=== PATIENT | female | born 1945 | race Caucasian/White ===

== ENCOUNTER 2018-08-10 17:55 | Emergency (ER) | payer OTHER, BC ==
[2018-08-10 18:11] VITALS: TEMP 97.8; BMI 24.0
--- NOTE | 2018-08-10 18:39 | PDOC ---
Documentation entered by Rivas Luna SCRIBE, acting as scribe for Lisseth Danielson MD. Lisseth Danielson MD: This documentation has been prepared by the Jeremy howe Daniel, SCRIBE, under my direction and personally reviewed by me in its entirety. I confirm that the documentation accurately reflects all work, treatment, procedures, and medical decision making performed by me. History of Present Illness - General Chief Complaint: Respiratory Stated Complaint: COUGH, SOB History Source: Patient Exam Limitations: No Limitations - History of Present Illness Initial Comments: 08/10/18 18:43 The patient is a 72 year old female with a past medical history of COPD here today for evaluation of productive cough and shortness of breath x 1 week. The patient reports that she has been having difficulty breathing with a cough productive of yellowish white sputum since friday (08/04/18). She also notes intermittent wheezing and a tickle in her throat. Patient reports using her albuterol treatment with no relief. She reports that she started taking prednisone and levaquin x 3 days, rx'd by PMD last Friday. no URI sx. +possible trigger of weather changes and allergy season no longer smoking, quit 1 year ago. Patient denies headache, lightheadedness. Denies fever, chills. Denies chest pain. Denies nausea, vomiting, diarrhea, abdominal pain. Allergies: ciprofloxacin, penicillins, succinylcholine PCP: Pedro Pablo España 08/10/18 19:07 08/10/18 19:08 Past History - Past Medical History Allergies/Adverse Reactions: Allergies Allergy/AdvReac Type Severity Reaction Status Date / Time ciprofloxacin [From Cipro] Allergy Verified 08/10/18 17:56 Penicillins Allergy Verified 08/10/18 17:56 succinylcholine Allergy Verified 08/10/18 17:56 Home Medications: Ambulatory Orders Albuterol Sulfate Inhaler - [Ventolin Hfa Inhaler -] 2 inh PO Q6H PRN 08/10/18 Prednisone 5 mg PO ASDIR 08/10/18 Umeclidinium Brm/Vilanterol Tr [Anoro Ellipta 62.5-25 Mcg INH] 1 each IH DAILY 08/10/18 - Suicide/Smoking/Psychosocial Hx Smoking History: Current every day smoker Number of Cigarettes Smoked Daily: 20 'Breaking Loose' booklet given: 04/11/14 Hx Alcohol Use: No Substance Use Type: None Review of Systems - Review of Systems Able to Perform ROS?: Yes Comments:: 08/10/18 18:44 GENERAL/CONSTITUTIONAL: No fever or chills. No weakness. no sweats. HEAD, EYES, EARS, NOSE AND THROAT: +tickle in throat. No change in vision or hearing. No ear pain or discharge. No sore throat or mouth pain. No difficulty swallowing. No congestion. CARDIOVASCULAR: No chest pain or palpitations, syncope or edema. RESPIRATORY: +cough. +SOB. +wheezing. No hemoptysis. GASTROINTESTINAL No nausea/vomiting. No diarrhea or constipation. No bloody stools. GENITOURINARY: No hematuria, dysuria, frequency, urgency or other changes. MUSCULOSKELETAL: No joint or muscle swelling or pain. No decreased range of motion. No neck or back pain. SKIN: No rash or changes in skin color or lesions. No wounds. NEUROLOGIC: alert and oriented appropriately No headache, dizziness, loss of consciousness, or change in strength/sensation. No gait instability. HEMATOLOGIC/LYMPHATIC: No anemia, easy bruising/bleeding, or history of blood clots. No swollen lymph nodes ALLERGIC/IMMUNOLOGIC: No allergies PSYCH: no anxiety/depression All other systems reviewed and negative, or as documented in HPI. *Physical Exam - Physical Exam Comments: 08/10/18 18:49 General: Well appearing, awake and alert, NAD. HEENT: NCAT, PERRL, EOMI, clear conjunctiva, anicteric, moist mucus membranes, clear oropharynx, no oral lesions.. Neck: neck supple, FROM Resp: CTAB, normal and even respirations, no respiratory distress CVS: RRR, no murmurs, 2+ peripheral pulses throughout, no peripheral edema Abdomen: soft, NTND, no rebound or guarding. No CVAT. Back: nontender, normal inspection and ROM MSK: no edema, FAJARDO x4, ROM intact. No clubbing or cyanosis. normal bulk and tone. Extremities: no calf tenderness Neuro: alert, oriented appropriately; no focal neurologic deficits Skin: warm and well perfused, cap refill <2 sec, normal color Medical Decision Making - Medical Decision Making 08/10/18 19:05 hpi as documented VS with no fever, no hypoxia. mild tachycardia, but also very anxious and admits to it. nontoxic appearing, well, no systemic s/s to suggest severe infection or pathology Interpreted by ED Physician: CXR (2 view): no acute abnormality: no infiltrates , bones appear intact and structures normal alignment, cardiac silhouette within normal limits. no free air under diaphragm, no pneumothorax. ?left lower lobe opacity, changed from prior. already on levaquin, complete and continue already on prednisone, continue minimize triggers, antihistamines such as zyrtec as needed for allergies possible precipitant hydration, supportive care, albuterol inh use instructed repeat VS normalized, no longer tachy, doubt PE or cardiac etiology, no cp or sob. pt informed of impression and plan, discharge in stable condition, return precautions and expectant management. pt and family verbalized understanding. 08/10/18 19:06 08/10/18 19:48 08/10/18 19:51 *DC/Admit/Observation/Transfer Diagnosis at time of Disposition: COPD (chronic obstructive pulmonary disease), Bronchitis - Discharge Dispostion Disposition: HOME Condition at time of disposition: Stable Decision to Admit order: No - Referrals Referrals: Pedro Pablo España MD [Primary Care Provider] - - Patient Instructions Printed Discharge Instructions: DI for Chronic Obstructive Pulmonary Disease, DI for Acute Bronchitis Additional Instructions: salt water gargles and warm lemon tea is appropriate as well for soothing qualities for sore throat/cough. minimize spread of infection given contagious nature, and cover your mouth and wash your hands adequately with soap and water. Stay well hydrated and rest. Cool air - walk around outdoors in the evening. May also try hot shower steam. This can alleviate the congestion and cough. May use the albuterol inhaler every 4-6 hours as needed for cough and breathing to clear up your airways. Return precautions include respiratory distress, difficulty breathing, cyanosis , chest pain, lethargy, confusion, dehydration, high fevers or pain. continue taking your steroids as instructed as well as the antibiotics called levaquin to cover for infection/bacteria/pneumonia - Post Discharge Activity
[2018-08-10] MEDS ORDERED: ALBUTEROL SO4 2.5/IPRATROPIUM 0.5 INH SOL 3 ML VIAL.NEB. NEB ONE (18:49)
[2018-08-10] MEDS: ALBUTEROL SO4 2.5/IPRATROPIUM 0.5 INH SOL 3 ML VIAL.NEB. NEB SCH ×3 (18:50→19:20)
[2018-08-10 19:35] VITALS: BP 139/81; PULSE 97
== END 2018-08-10 19:54 | disposition home or self-care (01) ==
LOC: FER 17:55
PROC: 3E0F7GC Introduction of Other Therapeutic Substance into Respiratory Tract, Via Natural or Artificial Opening (ICD-10-PCS; principal; 2018-08-10)
DX: J44.9 Chronic obstructive pulmonary disease, unspecified (principal)
CPT/HCPCS: 71045-TC-FY; 94640; 99282-25

== ENCOUNTER 2020-02-07 11:35 | Inpatient (IN) | payer OTHER, BC ==
[2020-02-07] MEDS ORDERED: ALBUTEROL SO4 2.5/IPRATROPIUM 0.5 INH SOL 3 ML VIAL.NEB. NEB ONE ×2 (11:46→12:02)
[2020-02-07 12:36] LABS: INR 1.03 (0.82-1.09); PROTHROMBIN TIME (PATIENT) 11.5 SEC (10.2-13.0)
[2020-02-07 12:38] LABS: BASO % 0.8 % (0-2.0); EOS % 2.2 % (0-4.5); HEMATOCRIT 48.8 % (32.4-45.2); LYMPH % 24.7 % (8-40); MCH 29.6 pg (25.7-33.7); MCHC 32.7 g/dl (32.0-36.0); MEAN CELL VOLUME 90.6 fl (80-96); MEAN PLT VOLUME 8.4 fl (7.5-11.1); MONO % 8.8 % (3.8-10.2); NEUT % 63.5 % (42.8-82.8); PLATELET COUNT 339 K/MM3 (134-434); RBC 5.39 M/mm3 (3.60-5.2); RDW 14.3 % (11.6-15.6); WHITE BLOOD COUNT 7.7 K/mm3 (4.0-10.8)
[2020-02-07 12:41] LABS: ALBUMIN 4.6 g/dl (3.4-5.0); ALK PHOS 75 U/L (45-117); ANION GAP 13 MMOL/L (8-16); BILIRUBIN,TOTAL 0.8 mg/dl (0.2-1); CALCIUM 9.4 mg/dl (8.5-10); CHLORIDE 100 mmol/L (98-107); CO2 24 mmol/L (21-32); CREATININE 0.8 mg/dl (0.55-1.3); GLUCOSE,RANDOM 109 mg/dl (74-106); POTASSIUM 4.5 mmol/L (3.5-5.1); SGOT/AST 26 U/L (15-37); SGPT/ALT 21 U/L (13-61); SODIUM 137 mmol/L (136-145); TOT PROT 8.1 g/dl (6.4-8.2)
[2020-02-07] MEDS ORDERED: predniSONE 20 MG TABLET (UD) PO ONE (13:22)
[2020-02-07 13:30] LABS: VENOUS BASE EXCESS -0.4 mmol/L (-2-2); VENOUS O2 SATURATION 94.7 % (70-80); VENOUS PCO2 49.7 mmHg (38-52); VENOUS PH 7.339 (7.310-7.410)
[2020-02-07] MEDS ORDERED: predniSONE 20 MG TABLET (UD) ONE (13:49)
[2020-02-07] MEDS ORDERED: SODIUM CHLORIDE 500 ML IV STA (14:07)
[2020-02-07] MEDS ORDERED: SODIUM CHLORIDE FOR INHALATION 3 ML VIAL.NEB IH ONE (16:26)
[2020-02-07] MEDS ORDERED: DOXYCYCLINE HYCLATE 100 MG CAPSULE PO ONE ×2 (17:34→17:35)
[2020-02-07 18:56] VITALS: BMI 25.4
[2020-02-07] MEDS ORDERED: ALBUTEROL SO4 HFA INHALER IH PRN (20:36)
[2020-02-07] MEDS: ALPRAZolam 0.25 MG TABLET PO PRN (23:50)
[2020-02-07] MEDS: guaiFENesin 200 MG/10 ML 10 ML UNIT-DOSE CUPS PO PRN (23:50)
[2020-02-08] MEDS: methylPREDNISolone NA SUCC 40 MG/1 ML VIAL IVPUSH SCH ×2 (03:10→09:35)
[2020-02-08 07:40] LABS: BASO % 0.8 % (0-2.0); HEMATOCRIT 44.2 % (32.4-45.2); HEMOGLOBIN 14.9 GM/dl (10.7-15.3); LYMPH % 13.9 % (8-40); MCHC 33.8 g/dl (32.0-36.0); MEAN CELL VOLUME 88.6 fl (80-96); MEAN PLT VOLUME 8.5 fl (7.5-11.1); MONO % 1.1 % (3.8-10.2); NEUT % 84.2 % (42.8-82.8); PLATELET COUNT 293 K/MM3 (134-434); RBC 4.99 M/mm3 (3.60-5.2); RDW 13.9 % (11.6-15.6); WHITE BLOOD COUNT 5.9 K/mm3 (4.0-10.8)
[2020-02-08 07:57] LABS: ALBUMIN 4.3 g/dl (3.4-5.0); BILIRUBIN,TOTAL 0.8 mg/dl (0.2-1); CALCIUM 9.2 mg/dl (8.5-10); CREATININE 0.8 mg/dl (0.55-1.3); POTASSIUM 4.6 mmol/L (3.5-5.1); TOT PROT 7.5 g/dl (6.4-8.2)
[2020-02-08] MEDS: LISINOPRIL 10 MG TABLET PO SCH (09:35)
[2020-02-08] MEDS: ASPIRIN 81 MG CHEWABLE TABLETS PO SCH (09:35)
[2020-02-08] MEDS: ALPRAZolam 0.25 MG TABLET PO PRN ×2 (09:35→21:55)
[2020-02-08] MEDS: UMECLIDINIUM/VILANTEROL (ANORO) 62.5/25 MCG INHALER IH SCH (09:36)
[2020-02-08] MEDS: HEPARIN NA (PORCINE) 5,000 UNITS/ML 1ML VIAL SQ SCH ×2 (09:36→21:59)
[2020-02-08] MEDS ORDERED: LACTOBACILLUS ACIDOPHILUS 1 TABLET PO SCH (10:00)
[2020-02-08] MEDS ORDERED: DOXYCYCLINE HYCLATE 100 MG CAPSULE PO SCH (10:00)
[2020-02-08] MEDS ORDERED: ACETYLCYSTEINE 20% 200MG/ML 30 ML VIAL *FOR ORAL / INH USE ONLY NEB SCH ×2 (12:00→20:00)
[2020-02-08] MEDS: ALBUTEROL SO4 0.083% IH SOL 2.5 MG/3 ML VIAL.NEB. NEB SCH ×3 (13:33→19:55)
[2020-02-08] MEDS: ACETYLCYSTEINE 20% 200MG/ML 4 ML VIAL *FOR ORAL / INH USE ONLY NEB SCH (20:25)
[2020-02-09] MEDS: ACETYLCYSTEINE 20% 200MG/ML 4 ML VIAL *FOR ORAL / INH USE ONLY NEB SCH ×4 (08:25→19:48)
[2020-02-09] MEDS: ALBUTEROL SO4 0.083% IH SOL 2.5 MG/3 ML VIAL.NEB. NEB SCH ×4 (08:26→19:48)
[2020-02-09] MEDS ORDERED: PT OWN MED DRAWER 7, Y5N ONE (09:05)
[2020-02-09] MEDS: LISINOPRIL 10 MG TABLET PO SCH (09:13)
[2020-02-09] MEDS: ALPRAZolam 0.25 MG TABLET PO PRN ×3 (09:13→19:47)
[2020-02-09] MEDS: UMECLIDINIUM/VILANTEROL (ANORO) 62.5/25 MCG INHALER IH SCH (09:13)
[2020-02-09] MEDS: HEPARIN NA (PORCINE) 5,000 UNITS/ML 1ML VIAL SQ SCH ×2 (09:14→22:15)
[2020-02-09] MEDS: ASPIRIN 81 MG CHEWABLE TABLETS PO SCH (09:14)
[2020-02-09 11:09] LABS: BASO % 3.2 % (0-2.0); EOS % 0.2 % (0-4.5); HEMOGLOBIN 14.7 GM/dl (10.7-15.3); LYMPH % 21.8 % (8-40); MCH 29.8 pg (25.7-33.7); MCHC 33.5 g/dl (32.0-36.0); MEAN CELL VOLUME 89.1 fl (80-96); MEAN PLT VOLUME 8.2 fl (7.5-11.1); MONO % 11.6 % (3.8-10.2); NEUT % 63.2 % (42.8-82.8); PLATELET COUNT 301 K/MM3 (134-434); RBC 4.94 M/mm3 (3.60-5.2); WHITE BLOOD COUNT 9.6 K/mm3 (4.0-10.8)
[2020-02-09 11:24] LABS: ALBUMIN 4.2 g/dl (3.4-5.0); BILIRUBIN,TOTAL 0.6 mg/dl (0.2-1); CALCIUM 9.1 mg/dl (8.5-10); CREATININE 0.9 mg/dl (0.55-1.3); MAGNESIUM 2.2 mg/dL (1.8-2.4); PHOSPHOROUS 4.2 mg/dl (2.5-4.9); POTASSIUM 3.9 mmol/L (3.5-5.1); TOT PROT 7.3 g/dl (6.4-8.2)
[2020-02-09] MEDS ORDERED: methylPREDNISolone 8 MG TABLET PO ONE ×2 (12:19→21:00)
[2020-02-09] MEDS ORDERED: methylPREDNISolone 4 MG TABLET PO ONE ×2 (12:45→21:00)
[2020-02-09] MEDS: guaiFENesin 200 MG/10 ML 10 ML UNIT-DOSE CUPS PO PRN (19:47)
[2020-02-09] MEDS ORDERED: methylPREDNISolone NA SUCC 40 MG/1 ML VIAL IVPUSH SCH (20:00)
[2020-02-10] MEDS: ALBUTEROL SO4 0.083% IH SOL 2.5 MG/3 ML VIAL.NEB. NEB SCH ×2 (08:24→12:43)
[2020-02-10] MEDS: ALPRAZolam 0.25 MG TABLET PO PRN (08:24)
[2020-02-10] MEDS: ACETYLCYSTEINE 20% 200MG/ML 4 ML VIAL *FOR ORAL / INH USE ONLY NEB SCH ×2 (08:26→12:42)
[2020-02-10 09:19] VITALS: BP 111/49; TEMP 98.3
[2020-02-10 10:03] VITALS: PULSE 114
[2020-02-10] MEDS: ASPIRIN 81 MG CHEWABLE TABLETS PO SCH (10:05)
[2020-02-10] MEDS: UMECLIDINIUM/VILANTEROL (ANORO) 62.5/25 MCG INHALER IH SCH (10:06)
[2020-02-10] MEDS: LISINOPRIL 10 MG TABLET PO SCH (10:06)
[2020-02-10] MEDS: HEPARIN NA (PORCINE) 5,000 UNITS/ML 1ML VIAL SQ SCH (10:06)
== END 2020-02-10 13:19 | disposition home or self-care (01) | DRG 191 ==
LOC: FER 11:35 → FM/S 16:25
PROVIDERS: ADMIT Internal Medicine; ATTEND Nurse Practitioner Acute Care
DX: J44.1 Chronic obstructive pulmonary disease with (acute) exacerbation (principal); J96.10 Chronic respiratory failure, unspecified whether with hypoxia or hypercapnia; Z99.81 Dependence on supplemental oxygen; Z87.891 Personal history of nicotine dependence; R00.0 Tachycardia, unspecified; I10 Essential (primary) hypertension; J98.09 Other diseases of bronchus, not elsewhere classified; R91.1 Solitary pulmonary nodule; Z88.0 Allergy status to penicillin
CPT/HCPCS: 36415; 71045-TC-FY; 71275-TC; 80053; 82550; 82553; 82803; 83735; 83880; 84100; 84484; 85025; 85610; 87070; 87186; 87205; 93005; 93306-TC; 93971-TC; 94640; 99285-25; C9803; J1644; Q9967; U0003

== ENCOUNTER 2021-05-21 20:44 | Observation (INO) | payer OTHER, BC ==
[2021-05-21] MEDS ORDERED: IPRATROPIUM BR 0.02% 0.5 MG/2.5 ML VIAL.NEB. NEB ONE ×2 (20:46→20:57)
[2021-05-21] MEDS ORDERED: methylPREDNISolone NA SUCC 125 MG/2 ML VIAL IVPUSH ONE (20:47)
[2021-05-21] MEDS ORDERED: ALBUTEROL SO4 2.5/IPRATROPIUM 0.5 INH SOL 3 ML VIAL.NEB. NEB ONE ×4 (20:56→22:03)
[2021-05-21] MEDS ORDERED: methylPREDNISolone NA SUCC 125 MG/2 ML VIAL ONE (20:57)
[2021-05-21] MEDS ORDERED: SODIUM CHLORIDE 0.9% 500 ML INFUS.BAG IV ONE (21:14)
[2021-05-21 21:28] LABS: ALBUMIN 3.9 g/dl (3.4-5.0); BILIRUBIN,TOTAL 0.5 mg/dl (0.2-1); CALCIUM 9.4 mg/dl (8.5-10); CREATININE 0.8 mg/dl (0.55-1.3); TOT PROT 7.3 g/dl (6.4-8.2)
[2021-05-21 21:48] LABS: BASO % 1.5 % (0-2.0); EOS % 1.2 % (0-4.5); HEMOGLOBIN 14.1 GM/dL (10.7-15.3); LYMPH % 21.8 % (8-40); MCH 29.6 pg (25.7-33.7); MCHC 33.6 g/dl (32.0-36.0); MEAN CELL VOLUME 88.2 fl (80-96); MONO % 8.5 % (3.8-10.2); PLATELET COUNT 259 10^3/uL (134-434); RBC 4.76 M/mm3 (3.60-5.2); RDW 15.1 % (11.6-15.6); WHITE BLOOD COUNT 8.5 K/mm3 (4.0-10.0)
[2021-05-21] MEDS ORDERED: clonazePAM 0.5 MG TABLET ONE (22:52)
[2021-05-21] MEDS ORDERED: clonazePAM 0.5 MG TABLET PO ONE (22:52)
[2021-05-21] MEDS ORDERED: ACETAMINOPHEN 325 MG TABLET (FP) PO PRN (23:02)
[2021-05-21] MEDS ORDERED: POLYETHYLENE GLYCOL (HEALTHYLAX) 3350 17 GM PACKET PO PRN (23:02)
[2021-05-22] MEDS ORDERED: guaiFENesin/D-M SUGAR-FREE/ACLHOL-FREE 118 ML BOTTLE PO PRN (03:38)
[2021-05-22 06:13] VITALS: BMI 29.9
[2021-05-22] MEDS: methylPREDNISolone NA SUCC 40 MG/1 ML VIAL IVPUSH SCH ×2 (06:24→10:03)
[2021-05-22] MEDS: INSULIN SLIDING SCALE (NOVOLOG) 1 VIAL SQ SCH ×2 (06:33→11:06)
[2021-05-22 07:49] LABS: PROTHROMBIN TIME (PATIENT) 11.5 SEC (9.7-13.0)
[2021-05-22 07:52] LABS: ACTIVATED PTT 29.4 SECONDS (25.2-36.5)
[2021-05-22 07:54] LABS: CREATININE 0.9 mg/dl (0.55-1.3)
[2021-05-22 08:05] LABS: BASO % 0.3 % (0-2.0); EOS % 0.1 % (0-4.5); HEMOGLOBIN 13.9 GM/dL (10.7-15.3); LYMPH % 14.3 % (8-40); MCH 29.7 pg (25.7-33.7); MCHC 33.8 g/dl (32.0-36.0); MEAN PLT VOLUME 8.3 fl (7.5-11.1); MONO % 0.7 % (3.8-10.2); NEUT % 84.6 % (42.8-82.8); PLATELET COUNT 265 10^3/uL (134-434); RBC 4.66 M/mm3 (3.60-5.2); RDW 14.9 % (11.6-15.6); WHITE BLOOD COUNT 6.6 K/mm3 (4.0-10.0)
[2021-05-22] MEDS: PANTOPRAZOLE 40 MG TABLET PO SCH (10:03)
[2021-05-22] MEDS: ENOXAPARIN NA (PORCINE) 40 MG/0.4 ML DISP.SYRIN SQ SCH ×2 (10:03→10:17)
[2021-05-22] MEDS ORDERED: ALBUTEROL SO4 2.5/IPRATROPIUM 0.5 INH SOL 3 ML VIAL.NEB. NEB PRN (10:37)
[2021-05-22] MEDS ORDERED: clonazePAM 0.5 MG TABLET PO ONE (11:31)
[2021-05-22] MEDS: LEVALBUTEROL HCL 0.31 MG/3 ML VIAL.NEB IH SCH ×2 (13:03→19:15)
[2021-05-22] MEDS: ASPIRIN 81 MG CHEWABLE TABLETS PO SCH (14:36)
[2021-05-22] MEDS: clonazePAM 0.5 MG TABLET PO PRN (21:11)
[2021-05-22] MEDS: FLUTICASONE/SALMETEROL 100 MCG/50 MCG DISKUS IH SCH (21:11)
[2021-05-22] MEDS ORDERED: ATORVASTATIN CA 80 MG TABLET (FP) PO SCH (22:00)
[2021-05-23] MEDS: PANTOPRAZOLE 40 MG TABLET PO SCH (09:55)
[2021-05-23] MEDS: ASPIRIN 81 MG CHEWABLE TABLETS PO SCH (09:56)
[2021-05-23] MEDS: clonazePAM 0.5 MG TABLET PO PRN (09:56)
[2021-05-23] MEDS: ENOXAPARIN NA (PORCINE) 40 MG/0.4 ML DISP.SYRIN SQ SCH (09:57)
[2021-05-23] MEDS: FLUTICASONE/SALMETEROL 100 MCG/50 MCG DISKUS IH SCH (09:58)
[2021-05-23] MEDS ORDERED: TIOTROPIUM BROMIDE 2.5 MCG (SPIRIVA) RESPIMAT INHALER IH SCH (10:00)
[2021-05-23] MEDS ORDERED: predniSONE 20 MG TABLET (UD) PO SCH (10:00)
[2021-05-23] MEDS: LEVALBUTEROL HCL 0.31 MG/3 ML VIAL.NEB IH SCH (10:03)
[2021-05-23 10:10] VITALS: BP 132/61; PULSE 99; TEMP 98.2
== END 2021-05-23 13:31 | disposition home or self-care (01) ==
LOC: FER 20:44 → FM/S 22:07 → UNDOADMOB 05-22 02:10
PROVIDERS: ADMIT Hospitalist; ATTEND Nurse Practitioner Acute Care
PROC: 3E0F7GC Introduction of Other Therapeutic Substance into Respiratory Tract, Via Natural or Artificial Opening (ICD-10-PCS; principal; 2021-05-21)
PROC: 3E033GC Introduction of Other Therapeutic Substance into Peripheral Vein, Percutaneous Approach (ICD-10-PCS; 2021-05-21)
DX: F41.9 Anxiety disorder, unspecified (principal); J44.9 Chronic obstructive pulmonary disease, unspecified; I10 Essential (primary) hypertension; Z87.891 Personal history of nicotine dependence; Z88.0 Allergy status to penicillin; Z88.8 Allergy status to other drugs, medicaments and biological substances; Z99.81 Dependence on supplemental oxygen; Z29.9 Encounter for prophylactic measures, unspecified
CPT/HCPCS: 36415; 71046-TC-FY; 80048; 80053; 82962; 84484; 85025; 85610; 85730; 93005; 94640; 94761; 96374; 97116-GP; 97161-GP; 99285-25; C9803; G0378; U0003; U0005

== ENCOUNTER 2021-10-10 15:12 | Observation (INO) | payer OTHER, BC ==
[2021-10-10] MEDS ORDERED: predniSONE 20 MG TABLET (UD) PO ONE (15:54)
[2021-10-10] MEDS ORDERED: AZITHROMYCIN 250 MG TABLET PO ONE (15:57)
[2021-10-10] MEDS ORDERED: ALBUTEROL SO4 2.5/IPRATROPIUM 0.5 INH SOL 3 ML VIAL.NEB. NEB ONE ×2 (16:14→19:34)
[2021-10-10] MEDS ORDERED: AZITHROMYCIN 500 MG TABLET ONE (16:14)
[2021-10-10] MEDS ORDERED: predniSONE 20 MG TABLET (UD) ONE (16:14)
[2021-10-10] MEDS: ALBUTEROL SO4 2.5/IPRATROPIUM 0.5 INH SOL 3 ML VIAL.NEB. NEB SCH ×3 (16:30→23:50)
[2021-10-10 17:20] LABS: BASO % 2.6 % (0-2.0); EOS % 0.5 % (0-4.5); HEMATOCRIT 43.6 % (32.4-45.2); HEMOGLOBIN 14.5 GM/dL (10.7-15.3); LYMPH % 22.3 % (8-40); MCH 28.7 pg (25.7-33.7); MCHC 33.3 g/dl (32.0-36.0); MEAN CELL VOLUME 86.2 fl (80-96); MEAN PLT VOLUME 8.8 fl (7.5-11.1); MONO % 11.2 % (3.8-10.2); NEUT % 63.4 % (42.8-82.8); PLATELET COUNT 232 10^3/uL (134-434); RBC 5.06 M/mm3 (3.60-5.2); RDW 15.5 % (11.6-15.6); WHITE BLOOD COUNT 5.1 K/mm3 (4.0-10.0)
[2021-10-10 17:25] LABS: INR 1.03 (0.83-1.09); PROTHROMBIN TIME (PATIENT) 11.9 SEC (9.7-13.0)
[2021-10-10 17:28] LABS: ACTIVATED PTT 30.2 SECONDS (25.2-36.5); CALCIUM 8.5 mg/dL (8.5-10.1)
[2021-10-10 17:30] LABS: ALBUMIN 3.6 g/dl (3.4-5.0); BLOOD UREA NITROGEN 4.2 mg/dL (7-18); MAGNESIUM 2.2 mg/dL (1.8-2.4)
[2021-10-10 17:32] LABS: CREATININE 0.6 mg/dL (0.55-1.3)
[2021-10-10 17:34] LABS: BILIRUBIN,TOTAL 0.4 mg/dL (0.2-1); TOT PROT 6.9 g/dl (6.4-8.2)
[2021-10-10 22:34] LABS: ERYTHROCYTE SEDIMENTATION RATE 16 mm/hr (0-30)
[2021-10-10] MEDS ORDERED: REMDESIVIR 200 MG in SODIUM CHLORIDE 250 ML IVPB ONE (23:51)
[2021-10-11] MEDS ORDERED: ALBUTEROL SO4 HFA INHALER IH PRN (00:58)
[2021-10-11] MEDS ORDERED: clonazePAM 0.5 MG ODT TABLETS SL PRN (02:14)
[2021-10-11 05:31] VITALS: BMI 19.5
[2021-10-11] MEDS: SERTRALINE HCL 50 MG TABLET (FP) PO SCH (09:33)
[2021-10-11] MEDS: PANTOPRAZOLE 40 MG TABLET PO SCH (09:33)
[2021-10-11] MEDS: ENOXAPARIN NA (PORCINE) 40 MG/0.4 ML DISP.SYRIN SQ SCH ×2 (09:33→09:38)
[2021-10-11] MEDS ORDERED: PAROXETINE HCL 25 MG PO SCH (10:00)
[2021-10-11] MEDS ORDERED: methylPREDNISolone NA SUCC 40 MG/1 ML VIAL IVPUSH SCH (10:00)
[2021-10-11] MEDS ORDERED: DEXAMETHASONE 4 MG TABLET (FP) PO SCH (10:00)
[2021-10-11 11:01] LABS: BASO % 0.3 % (0-2.0); EOS % 0.1 % (0-4.5); HEMATOCRIT 40.6 % (32.4-45.2); HEMOGLOBIN 13.6 GM/dL (10.7-15.3); LYMPH % 38.5 % (8-40); MCH 28.6 pg (25.7-33.7); MCHC 33.4 g/dl (32.0-36.0); MEAN CELL VOLUME 85.7 fl (80-96); MEAN PLT VOLUME 8.6 fl (7.5-11.1); MONO % 14.8 % (3.8-10.2); NEUT % 46.3 % (42.8-82.8); PLATELET COUNT 231 10^3/uL (134-434); RBC 4.74 M/mm3 (3.60-5.2); RDW 15.2 % (11.6-15.6); WHITE BLOOD COUNT 3.6 K/mm3 (4.0-10.0)
[2021-10-11] MEDS: MINERAL OIL/PET HY-PHL TOPICAL OINTMENT 454 GM JAR TP SCH (11:05)
[2021-10-11] MEDS: AZITHROMYCIN IVPB 500 MG/250 ML BAG IVPB SCH (11:05)
[2021-10-11 11:38] LABS: CALCIUM 8.6 mg/dL (8.5-10.1)
[2021-10-11 11:39] LABS: ALBUMIN 3.4 g/dl (3.4-5.0); BLOOD UREA NITROGEN 7.4 mg/dL (7-18); MAGNESIUM 2.3 mg/dL (1.8-2.4)
[2021-10-11 11:42] LABS: CREATININE 0.7 mg/dL (0.55-1.3); PHOSPHOROUS 2.7 mg/dL (2.5-4.9)
[2021-10-11 11:44] LABS: BILIRUBIN,TOTAL 0.2 mg/dL (0.2-1); TOT PROT 6.7 g/dl (6.4-8.2)
[2021-10-11] MEDS: SODIUM CHLORIDE NASAL SPRAY 44 ML BOTTLE NS SCH ×2 (15:15→21:18)
[2021-10-11] MEDS: ONDANSETRON *ODT* 4 MG TABLET SL PRN (15:15)
[2021-10-11] MEDS: methylPREDNISolone NA SUCC 40 MG/1 ML VIAL IVPUSH SCH ×2 (17:13→17:20)
[2021-10-11] MEDS: guaiFENesin/D-M SUGAR-FREE/ACLHOL-FREE 118 ML BOTTLE PO PRN (21:18)
[2021-10-12] MEDS: methylPREDNISolone NA SUCC 40 MG/1 ML VIAL IVPUSH SCH ×4 (03:00→18:22)
[2021-10-12] MEDS: guaiFENesin/D-M SUGAR-FREE/ACLHOL-FREE 118 ML BOTTLE PO PRN ×2 (08:01→21:39)
[2021-10-12] MEDS: ONDANSETRON *ODT* 4 MG TABLET SL PRN (08:01)
[2021-10-12] MEDS: MINERAL OIL/PET HY-PHL TOPICAL OINTMENT 454 GM JAR TP SCH (10:44)
[2021-10-12] MEDS: SODIUM CHLORIDE NASAL SPRAY 44 ML BOTTLE NS SCH ×2 (10:45→21:39)
[2021-10-12] MEDS: ENOXAPARIN NA (PORCINE) 40 MG/0.4 ML DISP.SYRIN SQ SCH (10:45)
[2021-10-12] MEDS: AZITHROMYCIN IVPB 500 MG/250 ML BAG IVPB SCH (10:46)
[2021-10-12] MEDS: SERTRALINE HCL 50 MG TABLET (FP) PO SCH (10:46)
[2021-10-12] MEDS: PANTOPRAZOLE 40 MG TABLET PO SCH (10:46)
[2021-10-12 11:55] LABS: BASO % 0.5 % (0-2.0); EOS % 0.1 % (0-4.5); HEMATOCRIT 39.8 % (32.4-45.2); HEMOGLOBIN 13.3 GM/dL (10.7-15.3); LYMPH % 31.9 % (8-40); MCH 28.7 pg (25.7-33.7); MCHC 33.4 g/dl (32.0-36.0); MEAN CELL VOLUME 85.7 fl (80-96); MEAN PLT VOLUME 8.7 fl (7.5-11.1); MONO % 18.8 % (3.8-10.2); NEUT % 48.7 % (42.8-82.8); PLATELET COUNT 246 10^3/uL (134-434); RBC 4.65 M/mm3 (3.60-5.2); RDW 15.5 % (11.6-15.6); WHITE BLOOD COUNT 5.2 K/mm3 (4.0-10.0)
[2021-10-12 12:40] LABS: CALCIUM 8.8 mg/dL (8.5-10.1)
[2021-10-12 12:41] LABS: BLOOD UREA NITROGEN 18.2 mg/dL (7-18)
[2021-10-12 12:42] LABS: ALBUMIN 3.5 g/dl (3.4-5.0)
[2021-10-12 12:44] LABS: CREATININE 0.8 mg/dL (0.55-1.3)
[2021-10-12 12:46] LABS: BILIRUBIN,TOTAL 0.3 mg/dL (0.2-1); TOT PROT 6.8 g/dl (6.4-8.2)
[2021-10-13] MEDS: methylPREDNISolone NA SUCC 40 MG/1 ML VIAL IVPUSH SCH ×2 (01:28→09:55)
[2021-10-13] MEDS: ONDANSETRON *ODT* 4 MG TABLET SL PRN (08:45)
[2021-10-13] MEDS: AZITHROMYCIN IVPB 500 MG/250 ML BAG IVPB SCH (09:55)
[2021-10-13] MEDS: ENOXAPARIN NA (PORCINE) 40 MG/0.4 ML DISP.SYRIN SQ SCH ×2 (09:55→11:56)
[2021-10-13] MEDS: SODIUM CHLORIDE NASAL SPRAY 44 ML BOTTLE NS SCH ×2 (09:56→22:36)
[2021-10-13] MEDS: guaiFENesin/D-M SUGAR-FREE/ACLHOL-FREE 118 ML BOTTLE PO PRN ×2 (09:56→20:36)
[2021-10-13] MEDS: MINERAL OIL/PET HY-PHL TOPICAL OINTMENT 454 GM JAR TP SCH (09:57)
[2021-10-13] MEDS: SERTRALINE HCL 50 MG TABLET (FP) PO SCH (09:57)
[2021-10-13] MEDS: PANTOPRAZOLE 40 MG TABLET PO SCH (09:57)
[2021-10-13] MEDS: ACETYLCYSTEINE 20% 200MG/ML 4 ML VIAL *FOR ORAL / INH USE ONLY NEB SCH ×2 (14:10→21:16)
[2021-10-13] MEDS: DEXAMETHASONE 4 MG TABLET (FP) PO SCH (15:15)
[2021-10-13] MEDS: clonazePAM 0.5 MG TABLET PO PRN (17:18)
[2021-10-14] MEDS: ACETYLCYSTEINE 20% 200MG/ML 4 ML VIAL *FOR ORAL / INH USE ONLY NEB SCH ×3 (08:28→20:45)
[2021-10-14] MEDS: ONDANSETRON *ODT* 4 MG TABLET SL PRN (08:37)
[2021-10-14 09:43] LABS: BASO % 0.1 % (0-2.0); HEMATOCRIT 41.9 % (32.4-45.2); HEMOGLOBIN 13.7 GM/dL (10.7-15.3); LYMPH % 26.7 % (8-40); MCH 28.2 pg (25.7-33.7); MCHC 32.7 g/dl (32.0-36.0); MEAN CELL VOLUME 86.2 fl (80-96); MEAN PLT VOLUME 8.6 fl (7.5-11.1); MONO % 11.6 % (3.8-10.2); NEUT % 61.6 % (42.8-82.8); PLATELET COUNT 282 10^3/uL (134-434); RBC 4.86 M/mm3 (3.60-5.2); RDW 15.5 % (11.6-15.6); WHITE BLOOD COUNT 6.5 K/mm3 (4.0-10.0)
[2021-10-14 10:08] LABS: CALCIUM 9.1 mg/dL (8.5-10.1)
[2021-10-14 10:09] LABS: ALBUMIN 3.5 g/dl (3.4-5.0)
[2021-10-14 10:12] LABS: CREATININE 0.8 mg/dL (0.55-1.3)
[2021-10-14 10:13] LABS: BILIRUBIN,TOTAL 0.4 mg/dL (0.2-1); TOT PROT 6.7 g/dl (6.4-8.2)
[2021-10-14] MEDS: ALBUTEROL SO4 HFA INHALER IH PRN ×2 (10:18→15:19)
[2021-10-14] MEDS: DEXAMETHASONE 4 MG TABLET (FP) PO SCH (10:28)
[2021-10-14] MEDS: ENOXAPARIN NA (PORCINE) 40 MG/0.4 ML DISP.SYRIN SQ SCH (10:28)
[2021-10-14] MEDS: AZITHROMYCIN 250 MG TABLET PO SCH (10:28)
[2021-10-14] MEDS: SERTRALINE HCL 50 MG TABLET (FP) PO SCH (10:28)
[2021-10-14] MEDS: PANTOPRAZOLE 40 MG TABLET PO SCH (10:28)
[2021-10-14] MEDS: guaiFENesin/D-M SUGAR-FREE/ACLHOL-FREE 118 ML BOTTLE PO PRN ×2 (10:28→22:37)
[2021-10-14] MEDS: SODIUM CHLORIDE NASAL SPRAY 44 ML BOTTLE NS SCH ×2 (10:29→22:37)
[2021-10-14] MEDS: MINERAL OIL/PET HY-PHL TOPICAL OINTMENT 454 GM JAR TP SCH (10:29)
[2021-10-14] MEDS: clonazePAM 0.5 MG TABLET PO PRN (10:46)
[2021-10-14] MEDS ORDERED: ACETAMINOPHEN 325 MG TABLET (FP) PO PRN (14:23)
[2021-10-15] MEDS: ACETYLCYSTEINE 20% 200MG/ML 4 ML VIAL *FOR ORAL / INH USE ONLY NEB SCH ×2 (08:45→14:07)
[2021-10-15] MEDS: SODIUM CHLORIDE NASAL SPRAY 44 ML BOTTLE NS SCH (09:32)
[2021-10-15] MEDS: MINERAL OIL/PET HY-PHL TOPICAL OINTMENT 454 GM JAR TP SCH (09:32)
[2021-10-15] MEDS: AZITHROMYCIN 250 MG TABLET PO SCH (09:33)
[2021-10-15] MEDS: PANTOPRAZOLE 40 MG TABLET PO SCH (09:33)
[2021-10-15] MEDS: SERTRALINE HCL 50 MG TABLET (FP) PO SCH (09:33)
[2021-10-15] MEDS: DEXAMETHASONE 4 MG TABLET (FP) PO SCH (09:33)
[2021-10-15] MEDS: ENOXAPARIN NA (PORCINE) 40 MG/0.4 ML DISP.SYRIN SQ SCH (09:33)
[2021-10-15] MEDS: guaiFENesin/D-M SUGAR-FREE/ACLHOL-FREE 118 ML BOTTLE PO PRN (09:33)
[2021-10-15 09:40] VITALS: BP 116/65; PULSE 98; TEMP 98.4
== END 2021-10-15 15:40 | disposition home or self-care (01) ==
LOC: JER 15:12 → JERBED 21:35 → INTOOBSV 21:35 → UNDOADMOB 21:35 → JERBED 23:42 → J6S 10-11 05:09
PROVIDERS: ADMIT Hospitalist; ATTEND Nurse Practitioner Family
PROC: 3E0F7GC Introduction of Other Therapeutic Substance into Respiratory Tract, Via Natural or Artificial Opening (ICD-10-PCS; principal; 2021-10-10)
PROC: 3E03329 Introduction of Other Anti-infective into Peripheral Vein, Percutaneous Approach (ICD-10-PCS; 2021-10-10)
PROC: 3E033GC Introduction of Other Therapeutic Substance into Peripheral Vein, Percutaneous Approach (ICD-10-PCS; 2021-10-10)
PROC: 3E033GC Introduction of Other Therapeutic Substance into Peripheral Vein, Percutaneous Approach (ICD-10-PCS; 2021-10-10)
DX: J12.82 Pneumonia due to coronavirus disease 2019 (principal); J44.1 Chronic obstructive pulmonary disease with (acute) exacerbation; I11.9 Hypertensive heart disease without heart failure; I25.10 Atherosclerotic heart disease of native coronary artery without angina pectoris; R07.89 Other chest pain; R06.02 Shortness of breath; E78.5 Hyperlipidemia, unspecified; Z99.81 Dependence on supplemental oxygen; Z88.0 Allergy status to penicillin; Z88.8 Allergy status to other drugs, medicaments and biological substances; Z87.891 Personal history of nicotine dependence; Z29.8 Encounter for other specified prophylactic measures; F41.9 Anxiety disorder, unspecified
CPT/HCPCS: 0241U-QW; 36415; 71045-TC-FY; 71275-TC; 80053; 82728; 83615; 83735; 84100; 84484; 85025; 85379; 85610; 85651; 85730; 86140; 93005; 93010; 94640; 96365; 96367; 96375; 97116-GP; 97161-GP; 99285-25; C9399; G0378; Q0162; Q9967

== ENCOUNTER 2021-10-20 18:28 | Inpatient (IN) | payer OTHER, BC ==
[2021-10-20 18:59] VITALS: BMI 26.5
[2021-10-20 21:03] LABS: BASO % 0.1 % (0-2.0); HEMATOCRIT 40.7 % (32.4-45.2); HEMOGLOBIN 13.6 GM/dL (10.7-15.3); LYMPH % 9.5 % (8-40); MCH 28.6 pg (25.7-33.7); MCHC 33.5 g/dl (32.0-36.0); MEAN CELL VOLUME 85.5 fl (80-96); MEAN PLT VOLUME 8.6 fl (7.5-11.1); MONO % 5.1 % (3.8-10.2); NEUT % 85.3 % (42.8-82.8); PLATELET COUNT 321 10^3/uL (134-434); RBC 4.75 M/mm3 (3.60-5.2); RDW 15.4 % (11.6-15.6); WHITE BLOOD COUNT 10.4 K/mm3 (4.0-10.0)
[2021-10-20] MEDS ORDERED: ALBUTEROL SO4 2.5/IPRATROPIUM 0.5 INH SOL 3 ML VIAL.NEB. NEB ONE (21:19)
[2021-10-20] MEDS: ALBUTEROL SO4 2.5/IPRATROPIUM 0.5 INH SOL 3 ML VIAL.NEB. NEB SCH (21:20)
[2021-10-20 21:33] LABS: ALBUMIN 3.5 g/dl (3.4-5.0); CALCIUM 9.1 mg/dL (8.5-10.1)
[2021-10-20 21:34] LABS: BLOOD UREA NITROGEN 16.8 mg/dL (7-18); MAGNESIUM 2.6 mg/dL (1.8-2.4)
[2021-10-20 21:36] LABS: CREATININE 0.8 mg/dL (0.55-1.3)
[2021-10-20 21:38] LABS: BILIRUBIN,TOTAL 0.2 mg/dL (0.2-1)
[2021-10-20 21:39] LABS: TOT PROT 7.3 g/dl (6.4-8.2)
[2021-10-20 21:41] LABS: INR 0.95 (0.83-1.09); PROTHROMBIN TIME (PATIENT) 10.9 SEC (9.7-13.0)
[2021-10-20] MEDS ORDERED: DEXAMETHASONE SOD PHOSPHATE 10 MG/1 ML VIAL IVPUSH ONE (21:46)
[2021-10-20] MEDS ORDERED: DEXAMETHASONE SOD PHOSPHATE 10 MG/1 ML VIAL ONE (22:22)
[2021-10-20] MEDS ORDERED: DEXAMETHASONE 4 MG TABLET (FP) PO ONE (22:30)
[2021-10-20] MEDS ORDERED: DEXAMETHASONE 4 MG TABLET (FP) ONE (22:54)
[2021-10-21 01:36] VITALS: RESP 16
[2021-10-21] MEDS ORDERED: clonazePAM 0.5 MG ODT TABLETS SL PRN (02:21)
[2021-10-21] MEDS ORDERED: PATIENT'S OWN MEDICATION (NON-FORMULARY) (Fluticasone/Salmeterol [Advair Hfa 115-21 Mcg In IH PRN (02:21)
[2021-10-21] MEDS ORDERED: ALBUTEROL SO4 HFA INHALER IH PRN (02:21)
[2021-10-21] MEDS ORDERED: PATIENT'S OWN MEDICATION (NON-FORMULARY) (Levalbuterol Tartrate [Levalbuterol Tartrate Hfa IH PRN (02:21)
[2021-10-21] MEDS ORDERED: guaiFENesin 600 MG TABLET.ER (FP) PO PRN (06:45)
[2021-10-21 07:20] VITALS: BP 127/70; PULSE 80; TEMP 97.4
[2021-10-21 08:29] LABS: BASO % 0.3 % (0-2.0); EOS % 0.1 % (0-4.5); HEMATOCRIT 41.3 % (32.4-45.2); HEMOGLOBIN 13.6 GM/dL (10.7-15.3); LYMPH % 9.8 % (8-40); MCH 28.2 pg (25.7-33.7); MEAN CELL VOLUME 85.3 fl (80-96); MEAN PLT VOLUME 8.5 fl (7.5-11.1); MONO % 3.3 % (3.8-10.2); NEUT % 86.5 % (42.8-82.8); PLATELET COUNT 320 10^3/uL (134-434); RBC 4.84 M/mm3 (3.60-5.2); RDW 15.6 % (11.6-15.6); WHITE BLOOD COUNT 11.7 K/mm3 (4.0-10.0)
[2021-10-21 08:41] LABS: ALBUMIN 3.6 g/dl (3.4-5.0); CALCIUM 9.1 mg/dL (8.5-10.1)
[2021-10-21 08:42] LABS: BLOOD UREA NITROGEN 16.1 mg/dL (7-18); MAGNESIUM 2.7 mg/dL (1.8-2.4)
[2021-10-21 08:44] LABS: CREATININE 0.9 mg/dL (0.55-1.3)
[2021-10-21 08:45] LABS: PHOSPHOROUS 5.1 mg/dL (2.5-4.9)
[2021-10-21 08:46] LABS: BILIRUBIN,TOTAL 0.4 mg/dL (0.2-1); TOT PROT 7.2 g/dl (6.4-8.2)
[2021-10-21] MEDS ORDERED: ENOXAPARIN NA (PORCINE) 40 MG/0.4 ML DISP.SYRIN SQ ONE (09:13)
[2021-10-21] MEDS ORDERED: PANTOPRAZOLE 40 MG TABLET PO ONE (09:13)
[2021-10-21] MEDS ORDERED: DEXAMETHASONE 4 MG TABLET (FP) ONE (09:13)
[2021-10-21] MEDS ORDERED: SERTRALINE HCL 50 MG TABLET (FP) ONE (09:13)
[2021-10-21] MEDS ORDERED: ENOXAPARIN NA (PORCINE) 40 MG/0.4 ML DISP.SYRIN SQ SCH (10:00)
[2021-10-21] MEDS ORDERED: PANTOPRAZOLE 40 MG TABLET PO SCH (10:00)
[2021-10-21] MEDS ORDERED: UMECLIDINIUM/VILANTEROL (ANORO) 62.5/25 MCG INHALER IH SCH (10:00)
[2021-10-21] MEDS ORDERED: SERTRALINE HCL 50 MG TABLET (FP) PO SCH (10:00)
[2021-10-21] MEDS ORDERED: DEXAMETHASONE 4 MG TABLET (FP) PO SCH (10:00)
[2021-10-21] MEDS ORDERED: PAROXETINE HCL 25 MG PO SCH (10:00)
== END 2021-10-21 16:43 | disposition home or self-care (01) | DRG 178 ==
LOC: JER 18:28 → JERBED 22:46 → OBSVTOIN 10-21 02:13
PROVIDERS: ADMIT Hospitalist; ATTEND Nurse Practitioner Family
DX: U07.1 COVID-19 (principal); J44.1 Chronic obstructive pulmonary disease with (acute) exacerbation; J96.10 Chronic respiratory failure, unspecified whether with hypoxia or hypercapnia; Z99.81 Dependence on supplemental oxygen; I25.10 Atherosclerotic heart disease of native coronary artery without angina pectoris; F41.9 Anxiety disorder, unspecified; E78.5 Hyperlipidemia, unspecified; I10 Essential (primary) hypertension
CPT/HCPCS: 0241U-QW; 36415; 71046-TC-FY; 80053; 82728; 83615; 83735; 84100; 84484; 85025; 85610; 85651; 86140; 93005; 93010; 99285-25; G0378

== ENCOUNTER 2021-11-09 05:11 | Observation (INO) | payer OTHER, BC ==
[2021-11-09 05:24] VITALS: BMI 24.0
[2021-11-09] MEDS ORDERED: LACTATED RINGERS SOLUTION 1000 ML INFUS.BAG IV ONE (05:47)
[2021-11-09 06:10] LABS: INR 0.97 (0.83-1.09); PROTHROMBIN TIME (PATIENT) 11.2 SEC (9.7-13.0)
[2021-11-09 06:12] LABS: ACTIVATED PTT 29.2 SECONDS (25.2-36.5)
[2021-11-09 06:36] LABS: VENOUS BASE EXCESS 0.3 mmol/L (-2-2); VENOUS O2 SATURATION 37.2 % (70-80); VENOUS PCO2 60.5 mmHg (38-52); VENOUS PH 7.29 (7.310-7.410)
[2021-11-09 06:57] LABS: CHLORIDE 103 mmol/L (98-107); SODIUM 137 mmol/L (136-145)
[2021-11-09 06:59] LABS: ALBUMIN 3.6 g/dl (3.4-5.0); ANION GAP 11 MMOL/L (8-16); BLOOD UREA NITROGEN 13.8 mg/dL (7-18); CALCIUM 8.8 mg/dL (8.5-10.1); CO2 23 mmol/L (21-32); GLUCOSE,RANDOM 123 mg/dL (74-106)
[2021-11-09 07:02] LABS: CREATININE 0.7 mg/dL (0.55-1.3); SGPT/ALT 21 U/L (13-61)
[2021-11-09 07:03] LABS: SGOT/AST 28 U/L (15-37)
[2021-11-09 07:05] LABS: ALK PHOS 97 U/L (45-117); BILIRUBIN,TOTAL 0.4 mg/dL (0.2-1); TOT PROT 7.2 g/dl (6.4-8.2)
[2021-11-09 07:37] LABS: BASO % 0.3 % (0-2.0); HEMATOCRIT 44.3 % (32.4-45.2); HEMOGLOBIN 14.8 GM/dL (10.7-15.3); LYMPH % 5.2 % (8-40); MCH 29.2 pg (25.7-33.7); MCHC 33.4 g/dl (32.0-36.0); MEAN CELL VOLUME 87.4 fl (80-96); MEAN PLT VOLUME 7.5 fl (7.5-11.1); MONO % 5.3 % (3.8-10.2); NEUT % 89.2 % (42.8-82.8); PLATELET COUNT 315 10^3/uL (134-434); RBC 5.06 M/mm3 (3.60-5.2); WHITE BLOOD COUNT 11.4 K/mm3 (4.0-10.0)
[2021-11-09 09:28] LABS: URINE APPEARANCE CLEAR; URINE BILIRUBIN NEGATIVE (NEGATIVE); URINE COLOR YELLOW; URINE GLUCOSE (UA) NEGATIVE (NEGATIVE); URINE KETONE NEGATIVE (NEGATIVE); URINE LEUK ESTERASE NEGATIVE (NEGATIVE); URINE NITRITE NEGATIVE (NEGATIVE); URINE PROTEIN NEGATIVE (NEGATIVE); URINE UROBILINOGEN 0.2 mg/dL (0.2-1.0)
[2021-11-09] MEDS ORDERED: PATIENT'S OWN MEDICATION (NON-FORMULARY) (Levalbuterol Tartrate [Levalbuterol Tartrate Hfa IH PRN (09:37)
[2021-11-09] MEDS ORDERED: PATIENT'S OWN MEDICATION (NON-FORMULARY) (Mometasone Furoate [Mometasone Furoate] 17 GM Sp NS SCH (10:00)
[2021-11-09] MEDS ORDERED: SERTRALINE HCL 50 MG TABLET (FP) ONE (11:39)
[2021-11-09] MEDS ORDERED: PANTOPRAZOLE 40 MG TABLET PO ONE (11:39)
[2021-11-09] MEDS ORDERED: ASPIRIN COATED 81 MG TABLET.EC ONE (11:40)
[2021-11-09] MEDS: PANTOPRAZOLE 40 MG TABLET PO SCH (11:48)
[2021-11-09] MEDS: SERTRALINE HCL 50 MG TABLET (FP) PO SCH (11:48)
[2021-11-09] MEDS: ASPIRIN COATED 81 MG TABLET.EC PO SCH (11:48)
[2021-11-09] MEDS: FLUTICASONE/UMECLIDIN/VILANTER(100-62.5-25 TRELEGY ELLIPTA) INAHLER IH SCH (11:48)
[2021-11-09] MEDS ORDERED: ACETAMINOPHEN 1000 MG/100 ML BAG IVPB ONE (20:11)
[2021-11-09] MEDS: ATORVASTATIN CA 80 MG TABLET (FP) PO SCH (21:26)
[2021-11-10 07:44] LABS: BASO % 0.9 % (0-2.0); EOS % 4.1 % (0-4.5); HEMATOCRIT 40.9 % (32.4-45.2); HEMOGLOBIN 13.6 GM/dL (10.7-15.3); LYMPH % 26.5 % (8-40); MCH 28.8 pg (25.7-33.7); MCHC 33.3 g/dl (32.0-36.0); MEAN CELL VOLUME 86.4 fl (80-96); MEAN PLT VOLUME 7.5 fl (7.5-11.1); MONO % 8.5 % (3.8-10.2); PLATELET COUNT 313 10^3/uL (134-434); RBC 4.73 M/mm3 (3.60-5.2); WHITE BLOOD COUNT 6.9 K/mm3 (4.0-10.0)
[2021-11-10 07:48] LABS: BLOOD UREA NITROGEN 12.6 mg/dL (7-18); CALCIUM 8.5 mg/dL (8.5-10.1)
[2021-11-10 07:49] LABS: ALBUMIN 3.2 g/dl (3.4-5.0)
[2021-11-10 07:51] LABS: PHOSPHOROUS 3.6 mg/dL (2.5-4.9)
[2021-11-10 07:52] LABS: CREATININE 0.8 mg/dL (0.55-1.3); MAGNESIUM 2.4 mg/dL (1.8-2.4)
[2021-11-10 07:53] LABS: BILIRUBIN,TOTAL 0.7 mg/dL (0.2-1); TOT PROT 6.6 g/dl (6.4-8.2)
[2021-11-10] MEDS: SERTRALINE HCL 50 MG TABLET (FP) PO SCH (09:33)
[2021-11-10] MEDS: PANTOPRAZOLE 40 MG TABLET PO SCH (09:33)
[2021-11-10] MEDS: ASPIRIN COATED 81 MG TABLET.EC PO SCH (09:33)
[2021-11-10] MEDS: FLUTICASONE/UMECLIDIN/VILANTER(100-62.5-25 TRELEGY ELLIPTA) INAHLER IH SCH (09:35)
[2021-11-10] MEDS ORDERED: TIOTROPIUM BROMIDE 2.5 MCG (SPIRIVA) RESPIMAT INHALER IH SCH (10:00)
[2021-11-10] MEDS ORDERED: CEPHALEXIN MONOHYDRATE 500 MG CAPSULE (UD) PO SCH (11:00)
[2021-11-10] MEDS: SULFAMETHOXAZOLE/TRIMETHOPRIM 800MG/160MG D.S. TABLET PO SCH ×2 (11:40→21:44)
[2021-11-10] MEDS ORDERED: clonazePAM 0.5 MG TABLET PO PRN (13:31)
[2021-11-10] MEDS ORDERED: LIDOCAINE 5% TOPICAL PATCH TP SCH (16:15)
[2021-11-10] MEDS ORDERED: ACETAMINOPHEN 1000 MG/100 ML BAG IVPB PRN (16:19)
[2021-11-10] MEDS: ATORVASTATIN CA 80 MG TABLET (FP) PO SCH (21:44)
[2021-11-10] MEDS ORDERED: LIDOCAINE PATCH REMOVAL MC SCH (22:00)
[2021-11-11] MEDS ORDERED: clonazePAM 0.5 MG TABLET PO PRN (05:49)
[2021-11-11] MEDS ORDERED: ACETAMINOPHEN 1000 MG/100 ML BAG IVPB PRN (05:49)
[2021-11-11 07:42] VITALS: RESP 20
[2021-11-11 10:09] LABS: BASO % 0.8 % (0-2.0); HEMATOCRIT 39.1 % (32.4-45.2); LYMPH % 16.4 % (8-40); MCHC 33.3 g/dl (32.0-36.0); MEAN PLT VOLUME 7.8 fl (7.5-11.1); MONO % 8.1 % (3.8-10.2); NEUT % 71.7 % (42.8-82.8); PLATELET COUNT 301 10^3/uL (134-434); RBC 4.49 M/mm3 (3.60-5.2); RDW 15.7 % (11.6-15.6); WHITE BLOOD COUNT 6.6 K/mm3 (4.0-10.0)
[2021-11-11] MEDS: PANTOPRAZOLE 40 MG TABLET PO SCH (10:29)
[2021-11-11] MEDS: SERTRALINE HCL 50 MG TABLET (FP) PO SCH (10:29)
[2021-11-11] MEDS: SULFAMETHOXAZOLE/TRIMETHOPRIM 800MG/160MG D.S. TABLET PO SCH ×2 (10:29→21:50)
[2021-11-11] MEDS: FLUTICASONE/UMECLIDIN/VILANTER(100-62.5-25 TRELEGY ELLIPTA) INAHLER IH SCH (10:30)
[2021-11-11] MEDS: ASPIRIN COATED 81 MG TABLET.EC PO SCH (10:30)
[2021-11-11] MEDS: LIDOCAINE 5% TOPICAL PATCH TP SCH (10:30)
[2021-11-11 10:38] LABS: ALBUMIN 3.3 g/dl (3.4-5.0)
[2021-11-11 10:41] LABS: BLOOD UREA NITROGEN 9.7 mg/dL (7-18); CALCIUM 8.7 mg/dL (8.5-10.1)
[2021-11-11 10:42] LABS: MAGNESIUM 2.1 mg/dL (1.8-2.4)
[2021-11-11 10:44] LABS: CREATININE 0.9 mg/dL (0.55-1.3)
[2021-11-11 10:46] LABS: BILIRUBIN,TOTAL 0.4 mg/dL (0.2-1); TOT PROT 6.6 g/dl (6.4-8.2)
[2021-11-11] MEDS ORDERED: LEVALBUTEROL HCL 0.63 MG/3 ML VIAL.NEB. IH PRN (18:17)
[2021-11-11] MEDS ORDERED: LIDOCAINE PATCH REMOVAL MC SCH (22:00)
[2021-11-11] MEDS ORDERED: ATORVASTATIN CA 80 MG TABLET (FP) PO SCH (22:00)
[2021-11-12 07:29] LABS: BASO % 0.9 % (0-2.0); EOS % 3.4 % (0-4.5); HEMATOCRIT 37.9 % (32.4-45.2); HEMOGLOBIN 12.9 GM/dL (10.7-15.3); LYMPH % 25.4 % (8-40); MCH 29.5 pg (25.7-33.7); MEAN CELL VOLUME 86.9 fl (80-96); MEAN PLT VOLUME 7.8 fl (7.5-11.1); MONO % 10.8 % (3.8-10.2); NEUT % 59.5 % (42.8-82.8); PLATELET COUNT 310 10^3/uL (134-434); RBC 4.36 M/mm3 (3.60-5.2); WHITE BLOOD COUNT 7.1 K/mm3 (4.0-10.0)
[2021-11-12 07:47] LABS: BLOOD UREA NITROGEN 11.9 mg/dL (7-18); CALCIUM 8.9 mg/dL (8.5-10.1)
[2021-11-12 07:48] LABS: ALBUMIN 3.4 g/dl (3.4-5.0); MAGNESIUM 2.2 mg/dL (1.8-2.4)
[2021-11-12 07:51] LABS: CREATININE 1.1 mg/dL (0.55-1.3)
[2021-11-12 07:52] LABS: BILIRUBIN,TOTAL 0.4 mg/dL (0.2-1); TOT PROT 6.7 g/dl (6.4-8.2)
[2021-11-12] MEDS: SULFAMETHOXAZOLE/TRIMETHOPRIM 800MG/160MG D.S. TABLET PO SCH (11:01)
[2021-11-12] MEDS: LIDOCAINE 5% TOPICAL PATCH TP SCH (11:01)
[2021-11-12] MEDS: ASPIRIN COATED 81 MG TABLET.EC PO SCH (11:01)
[2021-11-12] MEDS: SERTRALINE HCL 50 MG TABLET (FP) PO SCH (11:01)
[2021-11-12] MEDS: PANTOPRAZOLE 40 MG TABLET PO SCH (11:02)
[2021-11-12] MEDS: FLUTICASONE/UMECLIDIN/VILANTER(100-62.5-25 TRELEGY ELLIPTA) INAHLER IH SCH (11:06)
[2021-11-12 15:17] VITALS: BP 157/64; PULSE 109; TEMP 98.2
[2021-11-12] MEDS ORDERED: LEVALBUTEROL HCL 0.63 MG/3 ML VIAL.NEB. IH PRN (18:20)
== END 2021-11-12 16:07 | disposition home health service (06) ==
LOC: JER 05:11 → UNDOADMOB 05:35 → INTOOBSV 05:35 → JERBED 05:35 → J4W 17:03 → JERBED 17:03 → J4W 17:03 → J8W 11-11 05:53
PROVIDERS: ADMIT Internal Medicine; ATTEND Nurse Practitioner Acute Care
PROC: 3E033NZ Introduction of Analgesics, Hypnotics, Sedatives into Peripheral Vein, Percutaneous Approach (ICD-10-PCS; principal; 2021-11-09)
PROC: 3E0337Z Introduction of Electrolytic and Water Balance Substance into Peripheral Vein, Percutaneous Approach (ICD-10-PCS; 2021-11-09)
DX: J44.1 Chronic obstructive pulmonary disease with (acute) exacerbation (principal); R29.6 Repeated falls; I65.29 Occlusion and stenosis of unspecified carotid artery; Z86.79 Personal history of other diseases of the circulatory system; Z86.59 Personal history of other mental and behavioral disorders; Z88.0 Allergy status to penicillin; Z88.8 Allergy status to other drugs, medicaments and biological substances; W18.39XA Other fall on same level, initial encounter; Y93.89 Activity, other specified; Y92.002 Bathroom of unspecified non-institutional (private) residence as the place of occurrence of the external cause; Z29.8 Encounter for other specified prophylactic measures; Z99.81 Dependence on supplemental oxygen
CPT/HCPCS: 36415; 70450-TC; 71045-TC-FY; 72125-TC; 72170-TC-FY; 73560-TC-RT-FY; 80053; 81003; 82550; 82553; 82803; 83735; 84100; 84439; 84443; 84484; 85025; 85610; 85730; 86850; 86900; 86901; 87086; 87186; 93005; 93010; 93306-TC; 93880-TC; 96374; 96376; 97116-GP; 97161-GP; 99285-25; C9803-CS; G0378; U0003; U0005

== ENCOUNTER 2022-07-02 16:20 | Emergency (ER) | payer OTHER, BC ==
[2022-07-02] MEDS ORDERED: predniSONE 20 MG TABLET (UD) PO ONE (16:38)
[2022-07-02] MEDS ORDERED: predniSONE 20 MG TABLET (UD) ONE (16:44)
[2022-07-02] MEDS ORDERED: ALBUTEROL SO4 2.5/IPRATROPIUM 0.5 INH SOL 3 ML VIAL.NEB. NEB ONE (16:44)
[2022-07-02] MEDS: ALBUTEROL SO4 2.5/IPRATROPIUM 0.5 INH SOL 3 ML VIAL.NEB. NEB SCH ×3 (16:47→17:15)
[2022-07-02] MEDS ORDERED: ALBUTEROL SO4 0.083% IH SOL 2.5 MG/3 ML VIAL.NEB. NEB ONE ×2 (18:05→18:39)
[2022-07-02] MEDS ORDERED: MAGNESIUM SULF 50% (8.12 MEQ/2 ML-1 GM VIAL) IVPB ONE (18:23)
[2022-07-02] MEDS ORDERED: AZITHROMYCIN 500 MG TABLET PO ONE (18:24)
[2022-07-02] MEDS ORDERED: AZITHROMYCIN 250 MG TABLET ONE (18:39)
[2022-07-02] MEDS ORDERED: MAGNESIUM SULFATE IN WATER 2 GM/50 ML IVPB IVPB ONE (18:39)
[2022-07-02 19:23] LABS: ALBUMIN 4.2 g/dl (3.4-5.0); BILIRUBIN,TOTAL 0.7 mg/dl (0.2-1); CREATININE 0.8 mg/dl (0.55-1.3); POTASSIUM 4.1 mmol/L (3.5-5.1); TOT PROT 7.5 g/dl (6.4-8.2)
[2022-07-02 20:43] LABS: VENOUS BASE EXCESS -0.5 mmol/L (-2-2); VENOUS O2 SATURATION 96.1 % (70-80); VENOUS PCO2 46.1 mmHg (38-52); VENOUS PH 7.362 (7.310-7.410)
[2022-07-02 20:51] LABS: HEMATOCRIT 40.8 % (32.4-45.2); HEMOGLOBIN 13.8 GM/dL (10.7-15.3); MCH 29.4 pg (25.7-33.7); MCHC 33.7 g/dl (32.0-36.0); MEAN CELL VOLUME 87.2 fl (80-96); MEAN PLT VOLUME 8.6 fl (7.5-11.1); PLATELET COUNT 287 10^3/uL (134-434); RBC 4.68 M/mm3 (3.60-5.2); RDW 14.5 % (11.6-15.6); WHITE BLOOD COUNT 9.6 K/mm3 (4.0-10.0)
[2022-07-02 21:22] LABS: ANISOCYTOSIS 1+; MACROCYTOSIS 0
[2022-07-02 21:31] LABS: N-TERMINAL BNP 132.7 pg/ml (5-450)
[2022-07-02] MEDS ORDERED: DOCUSATE SODIUM 100 MG CAPSULE (FP) PO PRN (21:43)
[2022-07-02] MEDS ORDERED: ACETAMINOPHEN 325 MG TABLET (FP) PO PRN (21:43)
[2022-07-02] MEDS ORDERED: ALBUTEROL SO4 2.5/IPRATROPIUM 0.5 INH SOL 3 ML VIAL.NEB. NEB PRN (21:46)
[2022-07-02] MEDS ORDERED: clonazePAM 0.5 MG TABLET PO PRN (21:51)
[2022-07-02 23:32] VITALS: BMI 29.0
[2022-07-02] MEDS: HEPARIN NA (PORCINE) 5,000 UNITS/ML 1ML VIAL SQ SCH (23:34)
[2022-07-02] MEDS ORDERED: LEVALBUTEROL HCL 0.31 MG/3 ML VIAL.NEB IH PRN (23:47)
[2022-07-02] MEDS ORDERED: MELATONIN 5 MG TABLETS PO PRN (23:53)
[2022-07-03 05:15] VITALS: RESP 20
[2022-07-03] MEDS ORDERED: SERTRALINE HCL 50 MG TABLET (FP) PO SCH ×2 (08:15→10:00)
[2022-07-03 08:47] LABS: CALCIUM 8.9 mg/dl (8.5-10); CREATININE 0.7 mg/dl (0.55-1.3); POTASSIUM 4.2 mmol/L (3.5-5.1)
[2022-07-03 09:34] VITALS: PULSE 110
[2022-07-03] MEDS: predniSONE 20 MG TABLET (UD) PO SCH ×2 (09:47→09:57)
[2022-07-03] MEDS: HEPARIN NA (PORCINE) 5,000 UNITS/ML 1ML VIAL SQ SCH ×2 (09:47→09:53)
[2022-07-03] MEDS: LORATADINE 10 MG TABLET PO SCH ×2 (09:47→09:50)
[2022-07-03 09:51] LABS: HEMATOCRIT 38.3 % (32.4-45.2); HEMOGLOBIN 13.1 GM/dL (10.7-15.3); MCH 30.1 pg (25.7-33.7); MCHC 34.2 g/dl (32.0-36.0); MEAN CELL VOLUME 87.7 fl (80-96); MEAN PLT VOLUME 8.5 fl (7.5-11.1); PLATELET COUNT 252 10^3/uL (134-434); RBC 4.37 M/mm3 (3.60-5.2); RDW 14.4 % (11.6-15.6); WHITE BLOOD COUNT 6.6 K/mm3 (4.0-10.0)
[2022-07-03] MEDS ORDERED: FLUTICASONE/UMECLIDIN/VILANTER(100-62.5-25 TRELEGY ELLIPTA) INAHLER IH SCH (10:00)
[2022-07-03] MEDS ORDERED: AZITHROMYCIN 500 MG TABLET PO SCH (14:00)
[2022-07-03 14:02] VITALS: BP 132/57; TEMP 98.6
== END 2022-07-03 19:00 | disposition home or self-care (01) ==
LOC: FER 16:20 → FM/S 21:43
PROVIDERS: ADMIT Internal Medicine; ATTEND Internal Medicine
PROC: 3E033GC Introduction of Other Therapeutic Substance into Peripheral Vein, Percutaneous Approach (ICD-10-PCS; principal; 2022-07-02)
PROC: 3E0F7SF Introduction of Other Gas into Respiratory Tract, Via Natural or Artificial Opening (ICD-10-PCS; 2022-07-02)
DX: J44.1 Chronic obstructive pulmonary disease with (acute) exacerbation (principal); I10 Essential (primary) hypertension; E78.5 Hyperlipidemia, unspecified; Z88.0 Allergy status to penicillin; Z88.1 Allergy status to other antibiotic agents; Z99.81 Dependence on supplemental oxygen; Z87.891 Personal history of nicotine dependence
CPT/HCPCS: 0241U-QW; 36415; 71045-TC-FY; 80048; 80053; 82803; 83880; 84484; 85025; 85027; 93005; 94640; 96374; 97116-GP; 97162-GP; 99285-25; G0378; J1644

== ENCOUNTER 2023-03-13 15:28 | Emergency (ER) | payer OTHER, BC ==
[2023-03-13 16:09] VITALS: BP 159/70; PULSE 103; TEMP 97.8; BMI 30.9
[2023-03-13] MEDS ORDERED: ALBUTEROL SO4 2.5/IPRATROPIUM 0.5 INH SOL 3 ML VIAL.NEB. NEB ONE ×2 (16:35→16:54)
[2023-03-13] MEDS ORDERED: methylPREDNISolone NA SUCC 125 MG/2 ML VIAL IVPB ONE (16:54)
[2023-03-13] MEDS ORDERED: methylPREDNISolone NA SUCC 125 MG/2 ML VIAL ONE (17:15)
[2023-03-13] MEDS ORDERED: DEXAMETHASONE SOD PHOSPHATE 10 MG/1 ML VIAL IVPUSH ONE (17:37)
[2023-03-13] MEDS ORDERED: DEXAMETHASONE SOD PHOSPHATE 10 MG/1 ML VIAL ONE (17:37)
[2023-03-13 17:39] LABS: HEMATOCRIT 46.9 % (32.4-45.2); HEMOGLOBIN 15.2 G/dL (10.7-15.3); MCH 29.1 pg (25.7-33.7); MCHC 32.5 g/dl (32.0-36.0); MEAN CELL VOLUME 89.7 fl (80-96); MEAN PLT VOLUME 8.6 fl (7.5-11.1); PLATELET COUNT 226.3 10^3/uL (134-434); RBC 5.23 10^6/uL (3.60-5.2); RDW 14.4 % (11.6-15.6); WHITE BLOOD COUNT 7.4 10^3/uL (4.0-10.8)
[2023-03-13 17:57] LABS: PLATELET ESTIMATE ADEQUATE
[2023-03-13 18:01] LABS: ALBUMIN 4.6 g/dl (3.4-5.0); BILIRUBIN,TOTAL 0.4 mg/dl (0.2-1); CALCIUM 9.5 mg/dl (8.5-10.1); CREATININE 0.7 mg/dl (0.6-1.3); POTASSIUM 3.6 mmol/L (3.5-5.1); TOT PROT 7.4 g/dl (6.4-8.2)
[2023-03-13] MEDS ORDERED: VANCOMYCIN 1,000 MG VIAL (RESTRICTED TO ID ONLY) ONE (19:34)
== END 2023-03-13 20:24 | disposition home or self-care (01) ==
LOC: FER 15:28
PROC: 3E033GC Introduction of Other Therapeutic Substance into Peripheral Vein, Percutaneous Approach (ICD-10-PCS; principal; 2023-03-13)
PROC: 3E0F7GC Introduction of Other Therapeutic Substance into Respiratory Tract, Via Natural or Artificial Opening (ICD-10-PCS; 2023-03-13)
DX: R06.02 Shortness of breath (principal); M25.562 Pain in left knee; J44.9 Chronic obstructive pulmonary disease, unspecified; W18.39XA Other fall on same level, initial encounter; Z20.822 Contact with and (suspected) exposure to COVID-19
CPT/HCPCS: 0241U-QW; 36415; 71045-TC-FY; 73562-TC-LT-FY; 80053; 85027; 93005; 93971-TC; 99285-25; J1100

== ENCOUNTER 2023-03-28 20:24 | Emergency (ER) | payer OTHER, BC ==
[2023-03-28 20:30] VITALS: BP 180/90; PULSE 100; RESP 18; TEMP 98.5; BMI 27.4
[2023-03-28] MEDS ORDERED: ALBUTEROL SO4 2.5/IPRATROPIUM 0.5 INH SOL 3 ML VIAL.NEB. NEB ONE ×2 (20:37→20:46)
== END 2023-03-28 22:05 | disposition home or self-care (01) ==
LOC: FER 20:24
PROC: 3E0F7GC Introduction of Other Therapeutic Substance into Respiratory Tract, Via Natural or Artificial Opening (ICD-10-PCS; principal; 2023-03-28)
DX: R06.02 Shortness of breath (principal); R05.9 Cough, unspecified; J44.9 Chronic obstructive pulmonary disease, unspecified
CPT/HCPCS: 99283-25

== ENCOUNTER 2023-07-23 10:25 | Emergency (ER) | payer OTHER, BC ==
[2023-07-23 11:33] VITALS: BP 159/75; PULSE 108; RESP 20; TEMP 98.8; BMI 27.4
== END 2023-07-23 12:40 | disposition home or self-care (01) ==
LOC: FER 10:25
DX: L29.9 Pruritus, unspecified (principal); R21 Rash and other nonspecific skin eruption; B35.6 Tinea cruris
CPT/HCPCS: 99283-25

== ENCOUNTER 2023-10-15 20:58 | Emergency (ER) | payer OTHER, BC ==
[2023-10-15 21:13] VITALS: RESP 19; BMI 26.5
[2023-10-15] MEDS: LEVALBUTEROL HCL 0.63 MG/3 ML VIAL.NEB. IH PRN (21:34)
[2023-10-15 21:48] VITALS: BP 155/91; PULSE 89; TEMP 98.4
[2023-10-16] MEDS: ONDANSETRON *ODT* 4 MG TABLET SL ONE (03:47)
== END 2023-10-16 07:46 | disposition home or self-care (01) ==
LOC: FER 20:58
DX: R06.02 Shortness of breath (principal); Z99.81 Dependence on supplemental oxygen; Z99.12 Encounter for respirator [ventilator] dependence during power failure
CPT/HCPCS: 99283-25; Q0162

== ENCOUNTER 2024-02-01 14:47 | Emergency (ER) | payer OTHER, BC ==
[2024-02-01 14:57] VITALS: RESP 18; BMI 21.2
[2024-02-01] MEDS ORDERED: NITROFURANTOIN MONOHYD/M-CRYST 100 MG CAPSULE PO ONE (15:55)
[2024-02-01] MEDS: NITROFURANTOIN MONOHYD/M-CRYST 100 MG CAPSULE PO ONE (15:59)
[2024-02-01 16:25] LABS: EPITHELIAL CELLS 0-5 /hpf
[2024-02-01 20:54] VITALS: BP 127/65; PULSE 79; TEMP 98
== END 2024-02-01 20:54 | disposition home or self-care (01) ==
LOC: FER 14:47
DX: R30.0 Dysuria (principal); N39.0 Urinary tract infection, site not specified; R10.2 Pelvic and perineal pain; R10.30 Lower abdominal pain, unspecified
CPT/HCPCS: 81003; 81015; 87086; 99283-25

== ENCOUNTER 2024-08-11 18:46 | Inpatient (IN) | payer OTHER, BC ==
[2024-08-11 19:30] VITALS: BMI 25.3
[2024-08-11] MEDS ORDERED: IPRATROPIUM BR 0.02% 0.5 MG/2.5 ML VIAL.NEB. NEB ONE (20:28)
[2024-08-11] MEDS ORDERED: DEXAMETHASONE 4 MG TABLET (FP) ONE (20:28)
[2024-08-11] MEDS ORDERED: MAGNESIUM SULFATE IN WATER 2 GM/50 ML IVPB IVPB ONE (20:28)
[2024-08-11] MEDS ORDERED: LEVALBUTEROL HCL 0.63 MG/3 ML VIAL.NEB. IH ONE (20:28)
[2024-08-11 21:01] LABS: ABSOLUTE IMMATURE GRANULOCYTES 0.02 x10^3/uL (0.0-0.031); BASOPHILS # 0.06 x10^3/uL (0.01-0.08); EOSINOPHIL % 2.9 % (0.7-5.8); EOSINOPHILS # 0.26 x10^3/uL (0.04-0.36); HEMATOCRIT 47.2 % (34.1-44.9); HEMOGLOBIN 14.6 g/dL (11.2-15.7); MCHC 30.9 g/dl (32.2-35.5); MEAN CELL VOLUME 89.6 fl (79.4-94.8); MEAN PLT VOLUME 9.8 fl (9.4-12.3); MONOCYTE # 0.92 x10^3/uL (0.24-0.86); MONOCYTE % 10.3 % (4.7-12.5); PLATELET COUNT 306 x10^3/uL (182-369); RDW 14.7 % (12.4-16.6)
[2024-08-11] MEDS: IPRATROPIUM BR 0.02% 0.5 MG/2.5 ML VIAL.NEB. NEB ONE (21:26)
[2024-08-11] MEDS: DEXAMETHASONE 4 MG TABLET (FP) PO ONE (21:26)
[2024-08-11] MEDS: MAGNESIUM SULFATE IN WATER 2 GM/50 ML IVPB IVPB ONE (21:26)
[2024-08-11] MEDS: LEVALBUTEROL HCL 0.63 MG/3 ML VIAL.NEB. IH ONE (21:26)
[2024-08-11 22:05] LABS: ALBUMIN 3.9 g/dl (3.4-5.0); ANION GAP 11 mmol/L (4-13); CALCIUM 9.6 mg/dL (8.5-10.1); CHLORIDE 106 mmol/L (98-107); CO2 23 mmol/L (21-32); GLUCOSE,RANDOM 129 mg/dL (74-106); MAGNESIUM 2.4 mg/dL (1.8-2.4); POTASSIUM 6.7 mmol/L (3.5-5.1); SODIUM 139 mmol/L (136-145)
[2024-08-11 22:08] LABS: BILIRUBIN,TOTAL 0.5 mg/dL (0.2-1); CREATININE 1.2 mg/dL (0.55-1.3); SGOT/AST 54 U/L (15-37); SGPT/ALT 23 U/L (13-61); TOT PROT 7.7 g/dl (6.4-8.2)
[2024-08-11 22:13] LABS: ALK PHOS 85 U/L (45-117)
[2024-08-11 23:57] LABS: POTASSIUM 4.6 mmol/L (3.5-5.1)
[2024-08-11 23:58] LABS: CALCIUM 9.6 mg/dL (8.5-10.1)
[2024-08-11 23:59] LABS: BLOOD UREA NITROGEN 18.4 mg/dL (7-18)
[2024-08-12 00:02] LABS: CREATININE 1.1 mg/dL (0.55-1.3)
[2024-08-12] MEDS ORDERED: IPRATROPIUM BR 0.02% 0.5 MG/2.5 ML VIAL.NEB. NEB PRN (01:59)
[2024-08-12] MEDS ORDERED: LEVALBUTEROL HCL 0.63 MG/3 ML VIAL.NEB. IH PRN ×3 (02:01→12:03)
[2024-08-12] MEDS ORDERED: ALBUTEROL SO4 2.5/IPRATROPIUM 0.5 INH SOL 3 ML VIAL.NEB. NEB ONE (02:04)
[2024-08-12] MEDS: ALBUTEROL SO4 2.5/IPRATROPIUM 0.5 INH SOL 3 ML VIAL.NEB. NEB ONE (02:14)
[2024-08-12] MEDS ORDERED: ALBUTEROL SO4 2.5/IPRATROPIUM 0.5 INH SOL 3 ML VIAL.NEB. NEB PRN ×2 (02:48→06:08)
[2024-08-12] MEDS: GLYCERIN 1 RECTAL SUPPOSITORY, ADULT RC ONE (06:36)
[2024-08-12 07:17] LABS: HEMATOCRIT 49.6 % (34.1-44.9); HEMOGLOBIN 15.4 g/dL (11.2-15.7); MEAN CELL VOLUME 89.5 fl (79.4-94.8); MEAN PLT VOLUME 10.2 fl (9.4-12.3); PLATELET COUNT 293 x10^3/uL (182-369); RDW 14.4 % (12.4-16.6)
[2024-08-12 07:37] LABS: POTASSIUM 4.8 mmol/L (3.5-5.1)
[2024-08-12 07:42] LABS: BLOOD UREA NITROGEN 16.4 mg/dL (7-18); CALCIUM 9.7 mg/dL (8.5-10.1)
[2024-08-12 07:45] LABS: CREATININE 0.8 mg/dL (0.55-1.3)
[2024-08-12] MEDS ORDERED: LEVALBUTEROL HCL 0.63 MG/3 ML VIAL.NEB. IH SCH (08:00)
[2024-08-12] MEDS ORDERED: ALBUTEROL SO4 2.5/IPRATROPIUM 0.5 INH SOL 3 ML VIAL.NEB. NEB SCH (08:00)
[2024-08-12] MEDS ORDERED: IPRATROPIUM BR 0.02% 0.5 MG/2.5 ML VIAL.NEB. NEB SCH (08:00)
[2024-08-12] MEDS: ALBUTEROL SO4 2.5/IPRATROPIUM 0.5 INH SOL 3 ML VIAL.NEB. NEB SCH (08:08)
[2024-08-12] MEDS: LORazepam 2 MG/ML SDV VIAL IVPUSH PRN (08:31)
[2024-08-12] MEDS: SENNOSIDES/DOCUSATE COMBO (SENNA PLUS) TABLET (UD) PO SCH (10:32)
[2024-08-12] MEDS: metoPROLOL SUCCINATE 25 MG TAB.SR.24H (FP) PO SCH (10:32)
[2024-08-12] MEDS: AZITHROMYCIN 250 MG TABLET PO SCH (10:32)
[2024-08-12] MEDS: methylPREDNISolone NA SUCC 40 MG/1 ML VIAL IVPUSH SCH (10:32)
[2024-08-12] MEDS: POLYETHYLENE GLYCOL (HEALTHYLAX) 3350 17 GM PACKET PO SCH (10:32)
[2024-08-12] MEDS: ESCITALOPRAM OXALATE 10 MG TABLET PO SCH (10:32)
[2024-08-12] MEDS: ASPIRIN COATED 81 MG TABLET.EC PO SCH (10:32)
[2024-08-12] MEDS: ENOXAPARIN NA (PORCINE) 40 MG/0.4 ML DISP.SYRIN SQ SCH (10:32)
[2024-08-12] MEDS: LEVALBUTEROL HCL 0.63 MG/3 ML VIAL.NEB. IH SCH (13:33)
[2024-08-12] MEDS: FLUTICASONE/UMECLIDIN/VILANTER(100-62.5-25 TRELEGY ELLIPTA) INAHLER IH SCH (13:34)
[2024-08-12] MEDS: clonazePAM 0.5 MG TABLET PO SCH (13:47)
[2024-08-13 09:10] LABS: ABSOLUTE IMMATURE GRANULOCYTES 0.02 x10^3/uL (0.0-0.031); BASOPHILS # 0.01 x10^3/uL (0.01-0.08); HEMATOCRIT 42.8 % (34.1-44.9); HEMOGLOBIN 13.4 g/dL (11.2-15.7); MCHC 31.3 g/dl (32.2-35.5); MEAN CELL VOLUME 88.8 fl (79.4-94.8); MEAN PLT VOLUME 10.6 fl (9.4-12.3); MONOCYTE # 0.54 x10^3/uL (0.24-0.86); MONOCYTE % 6.2 % (4.7-12.5); PLATELET COUNT 302 x10^3/uL (182-369); RDW 14.6 % (12.4-16.6)
[2024-08-13 09:44] LABS: CALCIUM 9.4 mg/dL (8.5-10.1)
[2024-08-13 09:45] LABS: ALBUMIN 3.6 g/dl (3.4-5.0); BLOOD UREA NITROGEN 27.7 mg/dL (7-18); MAGNESIUM 2.6 mg/dL (1.8-2.4)
[2024-08-13 09:46] LABS: POTASSIUM 4.7 mmol/L (3.5-5.1)
[2024-08-13 09:47] LABS: BILIRUBIN,TOTAL 0.4 mg/dL (0.2-1)
[2024-08-13 09:49] LABS: TOT PROT 6.8 g/dl (6.4-8.2)
[2024-08-13 09:55] LABS: CREATININE 0.8 mg/dL (0.55-1.3)
[2024-08-13] MEDS: ASPIRIN 81 MG CHEWABLE TABLETS PO SCH (10:24)
[2024-08-13] MEDS: LACTATED RINGERS SOLUTION 1,000 ML/1,000 ML INFUS.BAG IV SCH (12:58)
[2024-08-14] MEDS: METOCLOPRAMIDE HCL INJECTION 10 MG/2 ML VIAL IVPUSH ONE (18:26)
[2024-08-14] MEDS: EMPAGLIFLOZIN (JARDIANCE) 10 MG TABLET PO SCH (21:24)
[2024-08-15] MEDS: EMPAGLIFLOZIN (JARDIANCE) 10 MG TABLET PO SCH (06:07)
[2024-08-16 10:07] LABS: POTASSIUM 4.2 mmol/L (3.5-5.1)
[2024-08-16 10:08] LABS: POTASSIUM 4.2 mmol/L (3.5-5.1)
[2024-08-16 10:11] LABS: ALBUMIN 3.4 g/dl (3.4-5.0); BLOOD UREA NITROGEN 23.1 mg/dL (7-18); CALCIUM 8.7 mg/dL (8.5-10.1); MAGNESIUM 2.4 mg/dL (1.8-2.4)
[2024-08-16 10:14] LABS: TOT PROT 6.5 g/dl (6.4-8.2)
[2024-08-16 10:15] LABS: CALCIUM 9.1 mg/dL (8.5-10.1); CREATININE 0.9 mg/dL (0.55-1.3)
[2024-08-16 10:16] LABS: ALBUMIN 3.4 g/dl (3.4-5.0); MAGNESIUM 2.3 mg/dL (1.8-2.4)
[2024-08-16 10:18] LABS: BLOOD UREA NITROGEN 22.7 mg/dL (7-18)
[2024-08-16 10:19] LABS: CREATININE 0.9 mg/dL (0.55-1.3)
[2024-08-16 10:20] LABS: TOT PROT 6.4 g/dl (6.4-8.2)
[2024-08-16 10:32] LABS: BILIRUBIN,TOTAL 0.4 mg/dL (0.2-1)
[2024-08-16] MEDS: predniSONE 20 MG TABLET (UD) PO SCH (12:09)
[2024-08-17 01:37] VITALS: RESP 16
[2024-08-17 08:50] VITALS: BP 112/64; PULSE 81; TEMP 98.1
== END 2024-08-17 11:50 | DRG 191 ==
LOC: JER 18:46 → JERBED 08-12 01:38 → J4S 08-12 05:12
PROVIDERS: ADMIT Student in an Organized Health Care Education/Training Program; ATTEND Physician Assistant
DX: J44.1 Chronic obstructive pulmonary disease with (acute) exacerbation (principal); I24.89 Other forms of acute ischemic heart disease; J96.11 Chronic respiratory failure with hypoxia; Z99.81 Dependence on supplemental oxygen; F41.9 Anxiety disorder, unspecified; I25.10 Atherosclerotic heart disease of native coronary artery without angina pectoris; I12.9 Hypertensive chronic kidney disease with stage 1 through stage 4 chronic kidney disease, or unspecified chronic kidney disease; N18.32 Chronic kidney disease, stage 3b; K59.00 Constipation, unspecified; E87.5 Hyperkalemia; I16.0 Hypertensive urgency
CPT/HCPCS: 0241U-QW; 36415; 71045-TC-FY; 71275-TC; 80048; 80053; 80061; 83036; 83735; 83880; 84443; 84484; 85025; 85027; 85610; 85730; 93005; 93010; 93306-TC; 94761; 97116-GP; 97162-GP; 99285-25; Q9967

== ENCOUNTER 2024-09-06 15:36 | Emergency (ER) | payer OTHER, BC ==
[2024-09-06 16:02] VITALS: RESP 18; TEMP 97.9; BMI 24.7
[2024-09-06 16:38] LABS: VENOUS BASE EXCESS 2.9 mmol/L (-2-2); VENOUS O2 SATURATION 34.9 % (70-80); VENOUS PH 7.306 (7.310-7.410)
[2024-09-06 16:42] LABS: ABSOLUTE IMMATURE GRANULOCYTES 0.01 x10^3/uL (0.0-0.031); BASOPHILS # 0.04 x10^3/uL (0.01-0.08); EOSINOPHIL % 2.9 % (0.7-5.8); EOSINOPHILS # 0.18 x10^3/uL (0.04-0.36); HEMOGLOBIN 14.1 g/dL (11.2-15.7); MCHC 31.3 g/dl (32.2-35.5); MEAN PLT VOLUME 10.2 fl (9.4-12.3); MONOCYTE # 0.56 x10^3/uL (0.24-0.86); MONOCYTE % 9.1 % (4.7-12.5); PLATELET COUNT 237 x10^3/uL (182-369); RDW 14.8 % (12.4-16.6)
[2024-09-06 17:07] LABS: POTASSIUM 4.7 mmol/L (3.5-5.1)
[2024-09-06 17:10] LABS: CALCIUM 9.5 mg/dL (8.5-10.1)
[2024-09-06 17:11] LABS: ALBUMIN 3.7 g/dl (3.4-5.0); BLOOD UREA NITROGEN 11.4 mg/dL (7-18); MAGNESIUM 2.3 mg/dL (1.8-2.4)
[2024-09-06 17:14] LABS: CREATININE 0.7 mg/dL (0.55-1.3)
[2024-09-06 17:16] LABS: BILIRUBIN,TOTAL 0.2 mg/dL (0.2-1)
[2024-09-06 18:06] LABS: HCV DIAGNOSTIC IN-HOUSE W/RFLX NON-REACTIVE (NONREACTIVE); HIV INTERPRETATION NEGATIVE (NEGATIVE)
[2024-09-06 18:36] VITALS: BP 142/72; PULSE 94
[2024-09-06] MEDS ORDERED: ALBUTEROL SO4 2.5/IPRATROPIUM 0.5 INH SOL 3 ML VIAL.NEB. NEB ONE ×2 (20:35→20:38)
[2024-09-06] MEDS ORDERED: LEVALBUTEROL HCL 0.63 MG/3 ML VIAL.NEB. IH ONE (20:45)
[2024-09-06] MEDS: LEVALBUTEROL HCL 0.63 MG/3 ML VIAL.NEB. IH ONE (20:49)
== END 2024-09-06 21:50 | disposition home or self-care (01) ==
LOC: JER 15:36
DX: R06.02 Shortness of breath (principal); R53.1 Weakness
CPT/HCPCS: 0241U-QW; 36415; 71045-TC-FY; 80053; 82803; 83735; 84484; 85025; 86803; 87389; 93005; 93010; 99285-25

== ENCOUNTER 2024-12-01 09:27 | Day surgery (SDC) | payer OTHER, BC ==
[2024-11-24 13:19] VITALS: BMI 23.0
[2024-12-01] MEDS ORDERED: CARBACHOL 0.01% INTRA-OCULAR 1.5 ML VIAL ONE (09:31)
[2024-12-01] MEDS ORDERED: LIDOCAINE 1% P/F 10 MG/ML VIAL ONE (09:31)
[2024-12-01] MEDS ORDERED: EPINEPHrine 1:1000 P/F - 1 MG/ML AMP ONE (09:31)
[2024-12-01] MEDS ORDERED: NEO/POLYMYX B SULF/DEXAMETH OPHTHALMIC 5ML BOTTLE ONE (09:31)
[2024-12-01] MEDS ORDERED: BSS (NA/CA/MG/K) BALANCED SALT SOLUTION OPHTH SOLN 15 ML BOTTLE ONE (09:31)
[2024-12-01] MEDS ORDERED: TETRACAINE 0.5% OPHTH SOLN 2 ML BOTTLE ONE (09:31)
[2024-12-01] MEDS ORDERED: TOBRAMYCIN 0.3% OPHTH SOLN 5 ML BOTTLE ONE (09:47)
[2024-12-01] MEDS: PHENYLEPHRINE 2.5% OPTHALMIC DROP 2ML BOTTLE ONE (10:15)
[2024-12-01] MEDS: TROPICAMIDE 1% 3 ML EYE DROPS ONE (10:15)
[2024-12-01] MEDS: CYCLOPENTOLATE 2% OPHTH SOLN 2 ML BOTTLE ONE (10:15)
[2024-12-01] MEDS: TOBRAMYCIN 0.3% OPHTH SOLN 5 ML BOTTLE OS SCH (10:15)
[2024-12-01 12:07] VITALS: RESP 18; TEMP 97.1
[2024-12-01 12:31] VITALS: BP 129/68; PULSE 79
== END 2024-12-01 12:37 | disposition home or self-care (01) ==
LOC: FASU 09:27
PROVIDERS: ATTEND Ophthalmology
PROC: 08RK3JZ Replacement of Left Lens with Synthetic Substitute, Percutaneous Approach (ICD-10-PCS; principal; 2024-12-01 11:30)
DX: H26.8 Other specified cataract (principal)
CPT/HCPCS: 66984; V2632